=== PATIENT | male | born 1995 | race Caucasian/White ===

== ENCOUNTER 2017-12-26 07:57 | Emergency (ER) | payer OTHER ==
[~2017-12-26] VITALS: Ht 182.9 cm; Wt 106.6 kg
[2017-12-26 08:07] VITALS: BP 165/73
[2017-12-26 08:23] LABS: ABSOLUTE EOSINOPHILS 0.3 thou/uL (0.0-0.7); ABSOLUTE LYMPHOCYTES 2.2 thou/uL (0.8-5.3); ABSOLUTE MONOCYTES 0.6 thou/uL (0.0-1.2); ABSOLUTE NEUTROPHILS 3.1 thou/uL (1.6-8.1); BASOPHILS 0.3 %; EOSINOPHILS 4.1 %; HEMATOCRIT 44.8 % (42.0-52.0); HEMOGLOBIN 15.4 gm/dL (14.0-18.0); MCH 28.6 pg (26.0-34.0); MCHC 34.3 g/dL (28.0-37.0); MCV 83.4 fL (80.0-100.0); MONOCYTES 9.4 %; MPV 9.2 fl. (7.2-11.1); NUCLEATED RBCS 0 /100WBC; PLATELET COUNT* 194 thou/uL (150-400); POLYS 50.2 %; RBC 5.37 mil/uL (4.50-6.00); RDW-CV 12.8 % (10.5-14.5); WBC 6.2 thou/uL (4.0-11.0)
[2017-12-26 08:30] LABS: CALCIUM 9.1 mg/dL (8.5-10.1); CREATININE 0.8 mg/dL (0.6-1.3); POTASSIUM 4.1 mmol/L (3.5-5.1)
[2017-12-26 08:35] LABS: ALBUMIN 4.2 g/dL (3.4-5.0); TOTAL BILIRUBIN 0.6 mg/dL (<0.1-1.0); TOTAL PROTEIN 7.5 g/dL (6.4-8.2)
[2017-12-26 08:38] LABS: APTT 27.8 Seconds (25.0-31.3); INR 1.2; PROTIME 11.3 Seconds (9.20-11.50)
--- NOTE | 2017-12-26 16:19 | EKG ---
[place] [address] ELECTROCARDIOGRAM REPORT Name: ANA MARIA AYON Room: [facility]#: [id number] Admission: 12/26/17 Attend Phys: Discharge: Date of : [birth year] Report #: [id number] THIS REPORT FOR: //name// [facility] ED Test Date: 2017-12-26 Test Time: 08:16:59 Pat Name: ANA MARIA AYON Department: Room: Gender: Apparel Merchandiser: Roby ANGELES : 1995 Requested By: Andrey Katz Order Number: [id number] MD: Shekhar Jones Measurements Intervals [place] Rate: 85 P: 46 WI: 172 QRS: 25 QRSD: 106 T: 20 QT: 370 QTc: 440 Interpretive Statements Sinus rhythm RSR' in V1 or V2, probably normal variant No previous ECG available for comparison Electronically Signed On 12-26-2017 16:19:05 CDT by Shekhar Jones [email or web address] <ELECTRONICALLY SIGNED> By: Shekhar Jones MD, [facility] 12/26/17 1619 0816 0816 Shekhar Jones MD, FACC /EPI
== END 2017-12-26 08:54 | disposition home or self-care (01) ==
LOC: M.ERS 07:57
PROVIDERS: Family Medicine
DX: R20.2 Paresthesia of skin (principal)